=== PATIENT | male | born 1985 | race African-American/Black ===

== ENCOUNTER 2024-06-08 22:48 | Emergency (ER) | payer OTHER ==
[~2024-06-08] VITALS: Ht 190.5 cm; Wt 118.2 kg
[2024-06-08 22:55] VITALS: TEMP 99.5
[2024-06-08 23:28] VITALS: BP 192/102; PULSE 89; RESP 17; O2SAT 99
== END 2024-06-08 23:30 | disposition home or self-care (01) ==
LOC: ER 22:49
DX: N48.89 Other specified disorders of penis (principal)
CPT/HCPCS: 99281